=== PATIENT | male | born 1995 | race Caucasian/White ===

== ENCOUNTER 2017-07-01 23:32 | Emergency (ER) | payer MEDICAID, OTHER ==
[~2017-07-01] VITALS: Ht 185.4 cm; Wt 88.2 kg
[2017-07-01 23:35] VITALS: Ht 185.4 cm; Wt 88.2 kg
[2017-07-02] MEDS ORDERED: KETOROLAC 60 MG INJ IM STA (00:48)
[2017-07-02] MEDS ORDERED: HYDROCODONE/APAP (5/325) TAB PO ONE (01:00)
--- NOTE | 2017-07-02 02:11 | RADRPT ---
PROCEDURE: XR thoracic Spine. CLINICAL INDICATION: Trauma. TECHNIQUE: AP and lateral views of the thoracic spine were performed. COMPARISON: No pertinent prior examinations were submitted for comparison. FINDINGS: Vertebral body stature and alignment maintained. There is no evidence of fracture or subluxation. T here is mild dextroscoliosis of the thoracic spine. IMPRESSION: No evidence of compression fracture. RPTAT: HIKT .Zak Anguiano MD, MD Date Time Electronically viewed and signed by .Zak Anguiano MD, on 07/02/2017 02:11 .T/
--- NOTE | 2017-07-02 02:14 | RADRPT ---
PROCEDURE: XR Lumbar Spine. CLINICAL INDICATION: Trauma. Pain. TECHNIQUE: Three views of the lumbar spine are available for review COMPARISON: None available FINDINGS: No fracture is identified. There is maintenance of height of the vertebral bodies. Alignment is ma intained; there is no spondylolisthesis. Pedicles are intact. No degenerative changes are identifi ed. Bony mineralization is within normal limits. Soft tissues are unremarkable. IMPRESSION: 1. Unremarkable lumbar spine x-ray series. RPTAT: HMVK .Salo Morris MD, Date Time Electronically viewed and signed by .Salo Morris MD, on 07/02/2017 02:13 .K/
[2017-07-02] MEDS ORDERED: ORPH100T PO (02:27)
[2017-07-02] MEDS ORDERED: IBUP-1542 PO (02:27)
[2017-07-02 02:38] VITALS: BP 121/69; PULSE 75; RESP 20; TEMP 98
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
== END 2017-07-02 02:41 | disposition home or self-care (01) ==
LOC: FTE 23:32
DX: M54.5 Low back pain (principal); F17.210 Nicotine dependence, cigarettes, uncomplicated
CPT/HCPCS: 72072; 72100; 96372; J1885; Z7502; Z7610